=== PATIENT | female | born 1935 | race Caucasian/White ===

== ENCOUNTER 2017-04-06 12:31 | Emergency (ER) | payer MEDICARE ==
[2017-04-06 13:41] LABS: BASO % 0.5 % (0-6); EOS % 2.7 % (0-6); GRAN % 75.7 % (47-80); HEMATOCRIT 35.2 % (35.0-47.0); HEMOGLOBIN 11.4 gm/dl (11.6-16.0); LYMPH % 13.8 % (16-45); MEAN CELL VOLUME 94.1 fl (81-97); MEAN CORPUSCULAR HGB CONC 32.4 g/dl (32-36); MEAN PLATELET VOLUME 11.2 fl (7.4-10.4); MONO % 7.3 % (0-9); PLATELET COUNT 236 K/uL (130-400); RED BLOOD COUNT 3.74 M/uL (3.80-5.40); RED CELL DISTRIBUTION WIDTH 13.3 % (11.5-14.5); WHITE BLOOD COUNT W/O DIFF 6.3 K/uL (4.2-12.2)
[2017-04-06 13:42] LABS: MEAN CORPUSCULAR HEMOGLOBIN 30.4 pg (27-33)
[2017-04-06 13:42] LABS: URINE APPEARANCE CLEAR; URINE BILIRUBIN NEGATIVE (NEGATIVE); URINE BLOOD NEGATIVE (NEGATIVE); URINE COLOR YELLOW; URINE GLUCOSE (UA) NEGATIVE (NEGATIVE); URINE KETONE NEGATIVE (NEGATIVE); URINE LEUKOCYTE ESTERASE NEGATIVE (NEGATIVE); URINE NITRITE NEGATIVE (NEGATIVE); URINE PROTEIN NEGATIVE (NEGATIVE); URINE UROBILINOGEN 0.2 E.U./dL (0.20 - 1.00)
[2017-04-06 13:54] LABS: ALB/GLOB RATIO 0.9 (1.1-1.8); ALBUMIN 3.3 g/dL (4.0-5.0); BILIRUBIN,TOTAL 0.3 mg/dL (0.2-1.0); CREATININE 1.6 mg/dL (0.5-0.9)
--- NOTE | 2017-04-06 14:44 | Emergency Department Record ---
History of Present Illness - General Chief Complaint: Syncope Stated Complaint: HEADACHES,EYES ROLLED BACK AND SHAKING Time Seen by Provider: 04/06/17 13:11 Source: Patient, Family Mode of Arrival: Wheelchair Limitations: No limitations Travel/Exposure to [place] Within 21 Days of Symptoms: No - History of Present Illness Initial Comments: pt has c/o headaches for 4 days along w r neck pain. her family states she seems more confused lately. and then when she was coming to be seen in [facility] where she appeared to be losing conciousness and her eyes briefly rolled back in her head. her daughter states she was also shaking during this spell like a seiazure. pt has dementia MD Complaint: Almost passed out Onset/Timin -: Days(s) Prodromal Symptoms: Lightheaded Description of Event: Focal shaking -: Second(s) Injuries Sustained Associated with Event: Neck Current Symptoms: None Treatments Prior to Arrival: None - [place] Coma Scale Eye Response: (4) Open spontaneously Motor Response: (6) Obeys commands Verbal Response: (5) Oriented [place] Total: 15 - Related Data On Hormonal Control: No Home Medications Medication Instructions Recorded Confirmed Last Taken Cyanocobalamin (Vitamin B-12) 2,500 mcg PO DAILY 04/06/17 04/06/17 Unknown [Vitamin B12] Magnesium Oxide [Isidro] 500 mg PO DAILY 04/06/17 04/06/17 Unknown Potassium Chloride 10 meq PO DAILY 04/06/17 04/06/17 Unknown Sertraline HCl [Zoloft] 50 mg PO DAILY 04/06/17 04/06/17 Unknown Allergies Allergy/AdvReac Type Severity Reaction Status Date / Time No Known Drug Allergies Allergy Verified 04/06/17 12:52 Travel Screening - Travel/Exposure Within Last 30 Days Have you traveled within the last 30 days?: No Review of Systems Reviewed: No additional complaints except as noted below Constitutional: Reports: As per HPI. Denies: Chills, Fever, Malaise, Night sweats, Weakness, Weight change Eyes: Reports: As per HPI. Denies: Eye discharge, Eye pain, Photophobia, Vision change ENT: Reports: As per HPI. Denies: Congestion, Dental pain, Ear pain, Epistaxis , Hearing loss, Throat pain Respiratory: Reports: As per HPI. Denies: Cough, Dyspnea, Hemoptysis, Stridor, Wheezes Cardiovascular: Reports: As per HPI. Denies: Arrhythmia, Chest pain, Dyspnea on exertion, Edema, Murmurs, Orthopnea, Palpitations, Paroxysmal nocturnal dyspnea, Rheumatic Fever, Syncope Endocrine: Reports: As per HPI. Denies: Fatigue, Heat or cold intolerance, Polydipsia, Polyuria Gastrointestinal: Reports: As per HPI. Denies: Abdominal pain, Constipation, Diarrhea, Hematemesis, Hematochezia, Melena, Nausea, Vomiting Genitourinary: Reports: As per HPI. Denies: Abnormal menses, Discharge, Dyspareunia, Dysuria, Frequency, Hematuria, Incontinence, Retention, Urgency Musculoskeletal: Reports: As per HPI. Denies: Arthralgia, Back pain, Gout, Joint swelling, Myalgia, Neck pain Skin: Reports: As per HPI. Denies: Bruising, Change in color, Change in hair/ nails, Lesions, Pruritus, Rash Neurological: Reports: As per HPI. Denies: Abnormal gait, Confusion, Headache, Numbness, Paresthesias, Seizure, Tingling, Tremors, Vertigo, Weakness Psychiatric: Reports: As per HPI. Denies: Anxiety, Auditory hallucinations, Depression, Homicidal thoughts, Suicidal thoughts, Visual hallucinations Hematological/Lymphatic: Reports: As per HPI. Denies: Anemia, Blood Clots, Easy bleeding, Easy bruising, Swollen glands Past Medical History - SOCIAL HISTORY Smoking Status: Never smoker Alcohol Use: None Drug Use: None - RESPIRATORY Hx Respiratory Disorders: No - CARDIOVASCULAR Hx Cardio Disorders: Yes Hx Chest Pain: Yes Hx Hypertension: Yes - NEURO Hx Neuro Disorders: Yes Hx Headaches: Yes (migraines) - GI Hx GI Disorders: Yes Hx Reflux: Yes Hx Hiatal Hernia: Yes - Hx Genitourinary Disorders: Yes Hx Bladder Problem: Yes Hx UTI: Yes - ENDOCRINE Hx Endocrine Disorders: No Hx Diabetes: No - MUSCULOSKELETAL Hx Musculoskeletal Disorders: Yes Hx Arthritis: Yes - PSYCH Hx Psych Problems: No - HEMATOLOGY/ONCOLOGY Hx Hematology/Oncology Disorders: No Family Medical History Any Significant Family History?: Yes Hx Diabetes: Children *Diabetes Comment: Daughter Hx Heart Disease: Father Hx Resp Disorders: Children *Resp Comment: Daughter has COPD Physical Exam - General General Appearance: Alert, Cooperative, Mild distress Limitations: Altered mental status - Head Head exam: Normal inspection - Eye Eye exam: Normal appearance, PERRL, EOMI Pupils: Normal accommodation - ENT ENT exam: Normal exam, Mucous membranes moist, Normal external ear exam, Normal orophraynx Ear exam: Normal external inspection. negative: External canal tenderness Nasal Exam: Normal inspection. negative: Discharge, Sinus tenderness Mouth exam: Normal external inspection, Tongue normal Teeth exam: Normal inspection. negative: Dental caries Throat exam: Normal inspection. negative: Tonsillar erythema, Tonsillar exudate - Neck Neck exam: Normal inspection, Full ROM. negative: Tenderness - Respiratory Respiratory exam: Normal lung sounds bilaterally. negative: Respiratory distress - Cardiovascular Cardiovascular Exam: Regular rate, Normal rhythm, Normal heart sounds - GI/Abdominal GI/Abdominal exam: Soft, Normal bowel sounds. negative: Tenderness - Rectal Rectal exam: Deferred - exam: Deferred - Extremities Extremities exam: Normal inspection, Full ROM, Normal capillary refill. negative: Tenderness - Back Back exam: Reports: Normal inspection, Full ROM. Denies: Muscle spasm, Rash noted, Tenderness - Neurological Neurological exam: Alert, CN II-XII intact, Normal gait, Other (confused). negative: Oriented X3 - Psychiatric Psychiatric exam: Normal affect, Normal mood - Skin Skin exam: Dry, Intact, Normal color, Warm Course Vital Signs 04/06/17 04/06/17 12:44 13:22 Temperature 98.6 F Pulse Rate 57 L Pulse Rate [ 64 [employer] ] Respiratory 18 20 Rate Blood Pressure 136/54 Blood Pressure 136/54 [Right Arm] Pulse Ox 95 95 Medical Decision Making - Lab Data Result diagrams: 04/06/17 13:01 04/06/17 13:01 Lab Results 04/06/17 04/06/17 04/06/17 Range/Units 13:01 13:01 13:30 WBC 6.3 (4.2-12.2) K/uL RBC 3.74 L (3.80-5.40) M/uL Hgb 11.4 L (11.6-16.0) gm/dl Hct 35.2 (35.0-47.0) % MCV 94.1 (81-97) fl MCH 30.4 (27-33) pg MCHC 32.4 (32-36) g/dl RDW 13.3 (11.5-14.5) % Plt Count 236 (130-400) K/uL MPV 11.2 H (7.4-10.4) fl Gran % 75.7 (47-80) % Lymphocytes % 13.8 L (16-45) % Monocytes % 7.3 (0-9) % Eosinophils % 2.7 (0-6) % Basophils % 0.5 (0-6) % Sodium 140 (136-145) mmol/L Potassium 3.6 (3.4-4.5) mmol/L Chloride 103 (98-107) mmol/L Carbon Dioxide 24.0 (22-29) mmol/L Anion Gap 13.0 (7-16) BUN 22 (8-23) mg/dL Creatinine 1.6 H (0.5-0.9) mg/dL Estimated GFR 33 mL/min Random Glucose 110 H (74-109) mg/dL Calcium 8.6 L (8.8-10.2) mg/dL Total Bilirubin 0.30 (0.2-1.0) mg/dL AST 15 (10.0-35.0) U/L ALT 9 (<33) U/L Alkaline Phosphatase 61 (35-104) U/L Total Protein 7.0 (6.6-8.7) g/dL Albumin 3.3 L (4.0-5.0) g/dL Globulin 3.7 (1.4-4.8) gm/dL Albumin/Globulin Ratio 0.9 L (1.1-1.8) Urine Color Yellow Urine Appearance Clear Urine pH 5.5 (5.0-8.0) Ur Specific [place] 1.025 (1.002-1.030) Urine Protein Negative (NEGATIVE) Urine Glucose (UA) Negative (NEGATIVE) Urine Ketones Negative (NEGATIVE) Urine Blood Negative (NEGATIVE) Urine Nitrite Negative (NEGATIVE) Urine Bilirubin Negative (NEGATIVE) Urine Urobilinogen 0.2 (0.20 - 1.00) E.U./dL Ur Leukocyte Esterase Negative (NEGATIVE) Disposition Disposition: Discharge Clinical Impression: First time seizure, Renal insufficiency Headache Qualifiers: Headache type: unspecified Headache chronicity pattern: acute headache Intractability: not intractable Qualified Code(s): R51 - Headache Disposition: Home, Self-Care Condition: (1) Good Instructions: New-Onset Seizure in Adults (ED), Acute Headache (ED) Additional Instructions: follow up with family doctor and with neurologist. monitor closely. no climbing or bathing alone. Forms: Patient Portal Access Quality - Quality Measures Quality Measures: Headache - Headache: Neuroimaging Quality Measure: Measure #419: Overuse of Neuroimaging Neurological Exam: Patient did NOT have a normal neurological exam. Headache: Use of Neuroimaging: Patient Exclusion, Abnormal Neuro Exam - Blood Pressure Screening Does Patient Have Any of the Following: Active Dx of HTN Blood Pressure Classification: Pre-Hypertensive BP Reading Systolic Measurement: 136 Diastolic Measurement: 54 Screening for High Blood Pressure: Patient Exclusion, Hx of HTN [G9744]
[2017-04-06] MEDS ORDERED: ACETAMINOPHEN 325 MG TAB PO ONE (14:50)
--- NOTE | 2017-04-07 07:24 | CT SCAN REPORT ---
EXAM: EMERGENCY HEAD CT WITHOUT CONTRAST HISTORY: RIGHT SIDED HEADACHE FOR FOUR DAYS THEN A SYNCOPAL EPISODE AND FELL JUST BEFORE COMING TO THE EMERGENCY ROOM TODAY. TECHNIQUE: Axial CT scan of the head was performed without IV contrast. Comparison: No prior head CT with which to compare. Encounter: Initial. FINDINGS: No definite acute intracranial hemorrhage identified. No focal mass effect or midline shift apparent. Mild generalized atrophy is present. There is probably a small chronic lacunar infarct in the right basal ganglia. No definite acute infarct or intracranial mass lesion is seen. No depressed calvarial fracture is evident. IMPRESSION: 1. GENERALIZED ATROPHY. 2. NO DEFINITE ACUTE INTRACRANIAL HEMORRHAGE OR FOCAL MASS EFFECT EVIDENT. 3. PROBABLE SMALL CHRONIC LACUNAR INFARCT RIGHT BASAL GANGLIA. JOB NUMBER: [id number] MTDD
--- NOTE | 2017-04-07 08:13 | CT SCAN REPORT ---
DATE: 04/06/2017 at 1:49 p.m. EXAM: CT OF THE CERVICAL SPINE WITHOUT CONTRAST. HISTORY: Pain, syncope. The patient fell. TECHNIQUE: Axial CT scan of the entire cervical spine performed without intravenous contrast. COMPARISON: No prior cervical CT with which to compare. Comparison is made with a cervical plain film series dated 07/24/2016. FINDINGS: No apical pneumothorax evident. No definite fracture of the cervical spine identified. No prevertebral soft tissue swelling evident. There is narrowing of the fifth and sixth cervical interspaces with associated hypertrophic spurring. Slight anterior subluxation of C3 on C4 and of C4 on C5 which appears to be on a degenerative basis with multilevel facet joint arthropathy seen, most marked at the C3-4 level. There is some loss of the normal cervical lordosis likely to due to positioning or spasm. IMPRESSION: 1. NO DEFINITE FRACTURE OR PREVERTEBRAL SOFT TISSUE SWELLING SEEN IN THE CERVICAL SPINE. 2. MULTILEVEL DEGENERATIVE CHANGES IN THE CERVICAL SPINE. 3. SOME LOSS OF LORDOSIS LIKELY DUE TO POSITIONING OR SPASM. JOB NUMBER: [id number] MTDD
== END 2017-04-06 15:10 | disposition home or self-care (01) ==
LOC: ER 12:31
DX: R56.9 Unspecified convulsions (principal); N28.9 Disorder of kidney and ureter, unspecified; R51 Headache; M54.2 Cervicalgia; I10 Essential (primary) hypertension; F03.90 Unspecified dementia, unspecified severity, without behavioral disturbance, psychotic disturbance, mood disturbance, and anxiety
CPT/HCPCS: 70450; 72125; 80053; 81003; 85025; 93005; 93010; 99284